=== PATIENT | male | born 1935 | race Caucasian/White ===

== ENCOUNTER → 2018-01-25 | Outpatient (CLI) | payer OTHER, BC ==
[~2018-01-25] VITALS: Ht 182.9 cm; Wt 126.6 kg
[~2018-01-25] MED LIST: ACETAMINOPHEN325 M1 PO; ALTACE2.5 MG PO; ALTACE5 M1 PO; ASPIRIN EC81 M1 PO; ASPIRIN325 PO; BETAPACE AF80 MG PO; BYSTOLIC 5 MG5 M1 PO; BYSTOLIC2.5 MG PO; COUMADIN 5 MG TA5 M1 PO; SIMCOR 500-401 EACH PO; SPIRONOLACTONE25 M1 PO; ZOCOR40 MG PO
--- NOTE | ~2018-01-25 | P ---
[facility] [place] [address] PROCEDURE REPORT Name: JOHANNY GO Room #: REG [facility]#: [id number] Admission: 01/25/18 Attend Phys: Hank Marie MD Discharge: Date of : 39 Report #: [id number] THIS REPORT FOR: //name// CC: Gary Marie PROCEDURE: ICD generator exchange. 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 POSTOPERATIVE DIAGNOSIS: Implantable converter-defibrillator at elective replacement interval. HISTORY OF PRESENT ILLNESS: The patient is an 82-year-old male status post ICD implantation, whose device is at the elective replacement interval and is here for generator exchange. ANESTHESIA: The patient underwent MAC anesthesia, with no anesthesia-related complications. DESCRIPTION OF PROCEDURE: The patient underwent informed consent. We discussed the details of the procedure including the risks, which include but not limited to bleeding, infection, vascular damage and need for possible lead revisions. He understood these risks and is willing to proceed. The patient was brought to the EP laboratory in a fasting and sedated state, prepped and draped in a sterile fashion and received IV antibiotics prior to initiation of the procedure. Next, I injected lidocaine at the prior incision site. Incision was made and the chronic pocket was entered. The device was disconnected from the leads. They were tested and found to be functioning normally and the new device was connected, placed in the pocket and the pocket was irrigated with vancomycin. The pocket was closed in 3 layers using 2-0 for the deep layer, 3-0 for the mid layer and 4-0 for the subcuticular layer and surgical glue was placed to the outer skin layer. The patient awoke neurologically and hemodynamically intact. No complications and no significant bleed. The explanted device was a Medtronic product #[id number], serial number [id number]. The newly implanted device was a Medtronic model #UYGY3P3, serial #[id number]. The atrial lead was a Medtronic model #4574, serial #[id number]. This was implanted in 2007. The RV lead was a Medtronic model #6947, serial #[id number], implanted in 2000. The device is programmed to the DDD 60-130 mode and the VT zones were set at the nominal settings. The atrial lead demonstrated a P-wave of 1.9 millivolts, pacing impedance of 475 ohms and a pacing threshold of 0.5 volts at 0.5 milliseconds. The RV lead showed normal R-wave pacing impedance of [facility] [address] [place] [address] PROCEDURE REPORT Name: JOHANNY GO Room #: REG [facility].#: [id number] Admission: 01/25/18 Attend Phys: Hank Marie MD Discharge: Date of : 39 Report #: [id number] 399 ohms and a pacing threshold of 0.5 volts at 0.5 milliseconds. CONCLUSIONS: 1. Successful ICD generator change. 2. Satisfactory atrial and ventricular pacing and sensing thresholds. By: 1621 0150 Hank Marie MD /nt
[2018-01-25 07:09] VITALS: BP 114/69
[2018-01-25 07:47] LABS: ABSOLUTE NEUTROPHILS 4.3 thou/uL (1.4-8.2); BASOPHILS 0.7 % (0.0-2.0); EOSINOPHILS 2.3 % (0.0-3.0); HEMATOCRIT 45.3 % (42.0-52.0); HEMOGLOBIN 15.2 gm/dL (14.0-18.0); LYMPHOCYTES 18.5 % (24.0-44.0); MCH 30.8 pg (26.0-34.0); MCHC 33.6 g/dL (28.0-37.0); MCV 91.5 fL (80.0-100.0); MONOCYTES 7.2 % (1.0-8.0); PLATELET COUNT 153 thou/uL (150-400); POLYS 71.3 % (36.0-66.0); RBC 4.95 mil/uL (4.50-6.00); RDW 14.1 % (10.5-14.5); WBC 6.1 thou/uL (4.0-11.0)
[2018-01-25 08:00] LABS: CALCIUM 9.3 mg/dL (8.5-10.1); CREATININE 1.1 mg/dL (0.7-1.3); POTASSIUM 4.3 mmol/L (3.5-5.1)
[2018-01-25 08:01] LABS: APTT 29.7 Seconds (24.5-32.8); INR 1.2; PROTIME 12.3 Seconds (9.3-11.4)
[2018-01-25 08:07] LABS: ALBUMIN 3.8 g/dL (3.4-5.0); TOTAL BILIRUBIN 0.7 mg/dL (<0.1-1.0)
== END | disposition home or self-care (01) ==
LOC: CATH 06:35
PROVIDERS: Internal Medicine Cardiovascular Disease
DX: Z45.02 Encounter for adjustment and management of automatic implantable cardiac defibrillator (principal); I10 Essential (primary) hypertension; E78.5 Hyperlipidemia, unspecified; I42.9 Cardiomyopathy, unspecified; I48.91 Unspecified atrial fibrillation; Z87.891 Personal history of nicotine dependence; Z95.5 Presence of coronary angioplasty implant and graft; Z98.890 Other specified postprocedural states; Z79.01 Long term (current) use of anticoagulants; Z79.899 Other long term (current) drug therapy; Z79.82 Long term (current) use of aspirin
CPT/HCPCS: 62110; 62900; 70005

== ENCOUNTER 2018-04-12 01:06 | Inpatient (IN) | payer OTHER, BC ==
[~2018-04-12] VITALS: Ht 182.9 cm; Wt 124.7 kg
[2018-04-12 03:40] VITALS: BP 119/62
--- NOTE | 2018-04-12 05:24 | NUR ---
ADMISSION NOTE: PT ARRIVED ON 3W @ APPROX 0345 04/12/18, PT ALERT AND ORIENTED X4, PT ARRIVED ON 2L , SATS IN THE HIGH 90'S. ASSESSMENTS COMPLETED PER CCTELE PROTOCOL. LAURIE ARRIVED TO SEE PATIENT, PLAN OF CARE, KEEP NPO- WILL CONTINUE TO MONITOR
[2018-04-12 06:15] LABS: CHOLESTEROL 64 mg/dL (<200); HDL CHOLESTEROL 22 mg/dL (>40); LDL CHOLESTEROL 30 mg/dL (<100); TC:HDL 2.9 Ratio (Not establshd); TRIGLYCERIDE 62 mg/dL (<150); TROPONIN-I <0.06 ng/mL (<0.06); VLDL 12 mg/dL (<40)
[2018-04-12 06:18] LABS: SERUM ASSESSMENT Clear
[2018-04-12 06:36] LABS: LIPASE 3803 U/L (73-393)
[2018-04-12 08:02] VITALS: BP 105/59
[2018-04-12 08:20] LABS: ABSOLUTE NEUTROPHILS 16.7 thou/uL (1.4-8.2); BASOPHILS 0.2 % (0.0-2.0); HEMATOCRIT 39.8 % (42.0-52.0); HEMOGLOBIN 12.9 gm/dL (14.0-18.0); LYMPHOCYTES 4.9 % (24.0-44.0); MCH 29.8 pg (26.0-34.0); MCHC 32.4 g/dL (28.0-37.0); MCV 92.1 fL (80.0-100.0); MONOCYTES 4.3 % (1.0-8.0); PLATELET COUNT 237 thou/uL (150-400); POLYS 90.6 % (36.0-66.0); RBC 4.32 mil/uL (4.50-6.00); RDW 14.2 % (10.5-14.5); WBC 18.4 thou/uL (4.0-11.0)
[2018-04-12 08:30] LABS: ALBUMIN 2.6 g/dL (3.4-5.0); CALCIUM 8.3 mg/dL (8.5-10.1); CREATININE 1.2 mg/dL (0.7-1.3); TOTAL BILIRUBIN 3.9 mg/dL (<0.1-1.0); TOTAL PROTEIN 5.5 g/dL (6.4-8.2)
--- NOTE | 2018-04-12 08:31 | EKG ---
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 : 1935 Requested By: Shawna Posadas Order Number: [id number] MD: Hank Marie Measurements Intervals [place] Rate: 60 P: [place]: 198 QRS: -39 QRSD: 101 T: 25 QT: 441 QTc: 441 Interpretive Statements Atrial-paced rhythm Left axis deviation Compared to ECG 05/09/2015 07:24:55 Sinus rhythm no longer present Poor R-wave progression no longer present Electronically Signed On 04-12-2018 8:31:31 CUSTOMER SUCCESS ADVOCATE by Hank Marie [email or web address] <ELECTRONICALLY SIGNED> By: Hank Marie MD 04/12/18 0831 0659 MD YULIANA Adhikari
[2018-04-12 08:41] LABS: APTT 43.6 Seconds (24.5-32.8); INR 2.5; PROTIME 26.2 Seconds (9.3-11.4)
[2018-04-12 08:44] LABS: POTASSIUM 3.9 mmol/L (3.5-5.1)
[2018-04-12 16:03] VITALS: BP 119/57
[2018-04-12 20:05] VITALS: BP 124/60
--- NOTE | 2018-04-13 04:27 | NUR ---
RESTING QUIETLY TONIGHT. DENIES PAIN. CONTINUES ON IV FLUIDS, AND IV ANTIBIOTICS. NO CONCERNS VOICED.
[2018-04-13 04:28] VITALS: BP 111/63
[2018-04-13 05:51] LABS: HEMATOCRIT 37.1 % (42.0-52.0); HEMOGLOBIN 12.1 gm/dL (14.0-18.0); MCH 29.5 pg (26.0-34.0); MCHC 32.7 g/dL (28.0-37.0); MCV 90.4 fL (80.0-100.0); RBC 4.1 mil/uL (4.50-6.00); RDW 14.1 % (10.5-14.5); WBC 9.5 thou/uL (4.0-11.0)
[2018-04-13 06:06] LABS: INR 1.3; PROTIME 13.5 Seconds (9.3-11.4)
[2018-04-13 06:21] LABS: ALBUMIN 2.5 g/dL (3.4-5.0); CALCIUM 8.4 mg/dL (8.5-10.1); CREATININE 0.9 mg/dL (0.7-1.3); POTASSIUM 3.8 mmol/L (3.5-5.1); TOTAL BILIRUBIN 1.5 mg/dL (<0.1-1.0); TOTAL PROTEIN 5.3 g/dL (6.4-8.2)
[2018-04-13 06:27] LABS: ALBUMIN 2.3 g/dL (3.4-5.0); TOTAL BILIRUBIN 1.4 mg/dL (<0.1-1.0); TOTAL PROTEIN 5.9 g/dL (6.4-8.2)
[2018-04-13 07:52] VITALS: BP 131/77
--- NOTE | 2018-04-13 09:15 | EKG ---
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 COFFEY : 1935 Requested By: Gary Mendez Order Number: [id number] MD: Hank Marie Measurements Intervals [place] Rate: 64 P: [place]: 163 QRS: -44 QRSD: 99 T: 26 QT: 420 QTc: 434 Interpretive Statements Atrial-paced complexes Left axis deviation Low voltage, precordial leads Anteroseptal infarct, age indeterminate Compared to ECG 04/12/2018 06:59:07 Low QRS voltage now present Myocardial infarct finding now present Ventricular-paced complex(es) or rhythm no longer present Electronically Signed On 04-13-2018 9:15:31 TECHNOLOGY TRAINER by Hank Marie [email or web address] <ELECTRONICALLY SIGNED> By: Hank Marie MD 04/13/18914 4 4 Hank Marie MD /EPI
[2018-04-13 11:42] VITALS: BP 118/67
--- NOTE | 2018-04-13 14:45 | 2DMMODE ---
[facility] [place] [address] 2 D/M-MODE ECHOCARDIOGRAM Name: JOHANNY GO Room #: 355-P ADM IN M.R.#: [id number] Admission: 04/12/18 Attend Phys: Jonah Song MD Discharge: Date of : 39 Date of Service: 04/13/18 1445 Report #: [id number] THIS REPORT FOR: //name// APPROVED REPORT Study performed: 04/13/2018 10:23:35 EXAM: Comprehensive 2D, Doppler, and color-flow Echocardiogram Patient Location: Echo lab Room #: [facility] Status: routine BSA: 2.44 HR: 72 bpm BP: 131/77 mmHg Rhythm: Atrial Fibrillation Other Information Study Quality: Fair Indications ICD: Atrial Fibrillation CAD Cardiomyopathy Hypertension/HDD Echo Enhancing Agent Indication: Endocardial border delineation Agent(s) / Amount(s) Used: Optison 3 cc 2D Dimensions IVSd: 10.01 (7-11mm) LVOT Diam: 23.35 (18-24mm) LVDd: 53.17 mm PWd: 10.10 (7-11mm) Ascending Ao: 38.99 (22-36mm) LVDs: 39.65 (25-40mm) Aortic Root: 36.57 mm IVC: 22.00 mm Aortic Valve AoV Peak [place].: 1.43 m/s AO Peak Gr.: 8.22 mmHg LVOT Max P.20 mmHg LVOT Max V: 0.89 m/s MICHAEL Vmax: 2.67 cm2 Pulmonary Valve PV Peak [place].: 1.07 m/s PV Peak Gr.: 4.[address] [facility] [address] [place] [address] 2 D/M-MODE ECHOCARDIOGRAM Name: JOHANNY GO Room #: 355-P ADM IN .R.#: [id number] Admission: 04/12/18 Attend Phys: Jonah Song MD Discharge: Date of : 39 Date of Service: 04/13/18 1445 Report #: [id number] Tricuspid Valve TR Peak [place].: 2.92 m/s TR Peak Gr.: 34.19 mmHg PA Pressure: 44.00 mmHg Left Ventricle The left ventricle is normal size. There is normal left ventricular wall thickness. The left ventricular systolic function is normal. The left ventricular ejection fraction is within the normal range. LVEF is 55-60%. This study is not technically sufficient to allow evaluation of the LV diastolic function. Right Ventricle The right ventricle is normal size. The right ventricular systolic function is normal. Device lead is present in the right ventricle. Atria Left atrium is dilated. Right atrium is dilated. Device lead is present in the right atrium. Aortic Valve The aortic valve is normal in structure. No aortic regurgitation is present. There is no aortic valvular stenosis. Mitral Valve The mitral valve is normal in structure. Mild mitral regurgitation. No evidence of mitral valve stenosis. Tricuspid Valve The tricuspid valve is normal in structure. There is mild tricuspid regurgitation. Estimated PAP 44 mmHg. There is moderate pulmonary hypertension. Pulmonic Valve The pulmonary valve is normal in structure. Trace pulmonic regurgitation. Great Vessels The aortic root is normal in size. IVC is dilated and collapses >50% with inspiration. Pericardium No pericardial effusion. <Conclusion> [facility] [address] [place] [address] 2 D/M-MODE ECHOCARDIOGRAM Name: JOHANNY GO Room #: 355- ADM IN M.R.#: [id number] Admission: 04/12/18 Attend Phys: Jonah Song MD Discharge: Date of : 39 Date of Service: 04/13/18 1445 Report #: [id number] Limited study The left ventricular systolic function is normal. LVEF is 55-60%. Both atria are mildly dilated. The aortic valve is normal in structure. No aortic regurgitation or stenosis. The mitral valve is normal in structure. Mild mitral regurgitation. There is mild tricuspid regurgitation. Estimated pulmonary artery pressure of 44 mmHg. No pericardial effusion. <ELECTRONICALLY SIGNED> By: Chalo Hughes MD, [facility] 04/13/18 1445 1445 1445 Chalo Hughes MD, FACC /INF
[2018-04-13 15:33] VITALS: BP 112/55
--- NOTE | 2018-04-13 15:36 | NUR ---
ASSESSMENT: CM REVIEWED CHART AND MET WITH PATIENT AT THE BEDSIDE. PT IS ALERT AND ORIENTED X4. PT REPORTS HE LIVES AT HOME WITH HIS IN A HOUSE. PT REPORTS 2 STEPS TO ENTER WITH HANDRAILS AND NO STEPS HER HAS TO USE ONCE INSIDE. PT REPORTS HE DOES NOT GO IN THE BASEMENT. PT REPORTS AMBULATING WITH A CANE AND HAS A WALKER AT HOME IF NEEDED. PT REPORTS HAVING GRAB BARS IN THE SHOWER. PT REPORTS HE HAS NOT HAD HH IN THE PAST NOR BEEN TO A SNF. PT STATES HE HAS BEEN PRETTY INDEPENDENT. PT REPORTS HE DOES HAVE A CPAP HE WEARS AT HOME BUT DID NOT BRING IT TO THE HOSPITAL. CM NOTIFIED BEDSIDE RN. PT HAD ECHO TODAY. PATIENT MAY NEED POSSIBLE CHOLECYSTOSTOMY TUBE VS LAP KACEY. CM WILL CONTINUE TO FOLLOW TO ASSIST NEEDED.
--- NOTE | 2018-04-13 18:42 | NUR ---
PATIENT HAD ECHO DONE THIS AM AND EKG.HE CONT ON CLEAR LIQUID DIET AT THIS TIME. STATES HE DOES NOT HAVE APPETITE TO EAT. CONT ON IV FLUIDS. WAS HERE TODAY. WILL CONT WITH PLAN OF CARE.
[2018-04-13 19:55] VITALS: BP 117/61
[2018-04-14 04:25] VITALS: BP 118/64
[2018-04-14 06:20] LABS: ALBUMIN 2.5 g/dL (3.4-5.0); DIRECT BILIRUBIN 0.7 mg/dL (<0.1-0.3); TOTAL BILIRUBIN 1.2 mg/dL (<0.1-1.0); TOTAL PROTEIN 6.5 g/dL (6.4-8.2)
--- NOTE | 2018-04-14 06:36 | NUR ---
SLEPT MOST OF SHIFT. UP TO BATHROOM WITH STANDBY ASSIST. WORKING ON GOALS AND PLAN OF CARE FOR NOC AND POSSIBLE SURGERY. PROGRESSING TOWARDS SURGERY SOON. MAINTAIN SAFE ENVIRONMENT. CONTINUE TO ASSES. DENIES COMPLAINTS OF PAIN THIS SHIFT. TOLERATING LIQUIDS.
[2018-04-14 09:01] VITALS: BP 9121/60
--- NOTE | 2018-04-14 11:52 | NUR ---
Assumed care of patient at 0700. Vitals have been stable. Alert and oriented x4, denies pain and nausea. States had some loose stool this morning. Requesting to shower. [place] to be off monitor for shower - Dr. Jason valles with discontinuing telemetry all together and patient can be Med-Surg status. Shower this morning. IVF infusing per orders, along with scheduled Zosyn. Up with SBA, steady gait. Calls appropriately. On clear liquid diet and tolerating well. Surgery rounded this morning and appears they are monitoring patient on a day-to-day basis for surgery vs. non-surgery candidate. at bedside Continue to monitor.
--- NOTE | 2018-04-14 12:04 | NUR ---
ON-GOING ASSESSMENT: CM REVIEWED CHART. PATIENT IS STILL ON CLD AND WILL RESUME THAT AND ANBX TO SEE IF PANCREATITIS RESOLVES ON ITS OWN OR IF PATIENT WILL REQUIRE SURGERY. CM SPOKE WITH ATTENDING WHO STATES PATIENT WILL LIKELY BE HERE THROUGH THE WEEKEND. PT/OT ORDERED FOR PATIENT AND PENDING. CM WILL COTNINUE TO FOLLOW TO ASSIST NEEDED.
[2018-04-14 16:02] VITALS: BP 132/63
[2018-04-14 20:28] VITALS: BP 151/75
[2018-04-15 04:48] VITALS: BP 148/84
--- NOTE | 2018-04-15 06:20 | NUR ---
ASSUMED CARE OF PT AT 1900. A&Ox4, COOPERATIVE. DENIED PAIN AND TROUBLE BREATHING. TOLERATING FLUIDS AND IV ANTIBIOTICS. ABLE TO SLEEP MOST OF THE NIGHT. RESPONDED QUICKLY WHEN AROUNSED FROM SLEEP. NO ACUTE DISTRESS. PROGRESSING TOWARDS POC GOALS
[2018-04-15 07:58] VITALS: BP 139/75
[2018-04-15 16:54] VITALS: BP 139/79
--- NOTE | 2018-04-15 18:40 | NUR ---
PT IS PROGRESSING TOWARD POC GOALS. PT HAS NO C/O OF PAIN, N/V THIS SHIFT. IVF INFUSING. PT UP UP MC TO VOID VIA URINAL THIS SHIFT, STEADY ON FEET. PT IS RESTING COMFORTABLY AT THIS TIME, CALL LIGHT WITHIN REACH.
[2018-04-15 19:06] VITALS: BP 164/80
--- NOTE | 2018-04-16 02:41 | NUR ---
PATIENT IS ALERT AND ORIENTED. PATIENT IS UP AD MC. PATIENT IS ON ROOM AIR. PATIENT DENIES PAIN OR NAUSEA. PATIENT MS NOT ON TELE. PATIENT HAS A PACEMAKER. PATIENT USES URINAL. PATIENTS LBM WAS THE . PATIENT IS FROM [place]. PATIENT IS RESTING COMFORTABLEY IN BED. WCM. PATIENT PROGRESSING TO GOALS. PATIENT IS PENDING SURGERY WHEN THE LIVER ENZYMES DECREASE.
[2018-04-16 04:09] VITALS: BP 153/87
[2018-04-16 05:40] LABS: HEMATOCRIT 36.9 % (42.0-52.0); HEMOGLOBIN 12.1 gm/dL (14.0-18.0); MCH 29.8 pg (26.0-34.0); MCHC 32.9 g/dL (28.0-37.0); MCV 90.5 fL (80.0-100.0); RBC 4.07 mil/uL (4.50-6.00); RDW 13.7 % (10.5-14.5); WBC 6.1 thou/uL (4.0-11.0)
[2018-04-16 05:53] LABS: ALBUMIN 2.5 g/dL (3.4-5.0); CALCIUM 8.4 mg/dL (8.5-10.1); CREATININE 0.9 mg/dL (0.7-1.3); POTASSIUM 3.6 mmol/L (3.5-5.1); TOTAL PROTEIN 6.1 g/dL (6.4-8.2)
[2018-04-16 07:39] VITALS: BP 135/74
--- NOTE | 2018-04-16 14:54 | NUR ---
PT ALERT AND ORIENTED TIMES FOR. VSS, 98%RA. IVF INFUSING PER ORDER. PT DENIES PAIN/N/V/D TODAY. PT TOLERATES MEDS AND CLEAR LIQUID DIET. PT UP AB MC WITH STEADY GAIT. PLANS FOR LAP KACEY FOR TUESDAY OR TUESDAY. WILL CONTINUE TO MONITOR.
--- NOTE | 2018-04-16 16:13 | NUR ---
PATIENT TRANSFERRED TO UNIT AT 1612. REPORT GIVEN BY NURSE LEFTY. PATIENT SETTLED IN ROOM AND ORIENTED TO UNIT.
[2018-04-16 16:35] VITALS: BP 135/76
--- NOTE | 2018-04-17 04:22 | NUR ---
ASSUMED CARE OF PATIENT AT 1900. VSS. ASSESSMENT COMPLETED AT 1947 AND IS DOCUMENTED. PT A&O X4 AND ABLE TO CALL OUT APPROPRIATELY. DENIES N/V. TRACE EDEMA NOTED TO BLE. CONTINUES ON CLEAR LIQUID DIET, TOLERATING WELL. RIGHT AC PIV PATENT WITH CONTINUOUS IVF AND ZOSYN INFUSING PER DR ORDER. PT SLEEPING SOUNDLY IN BED IN NO ACUTE DISTRESS. CALL LIGHT WITHIN REACH. BED LOCKED AND IN LOWEST POSITION. WCTM.
--- NOTE | 2018-04-17 05:26 | NUR ---
THIS NURSE AGREES WITH ASSESSMENT AND NOTES OF OPERATIONS OFFICER AFLOAT ON THIS PATIENT.
--- NOTE | 2018-04-17 09:35 | NUR ---
PT IS A&0X4, ONLY SLIGHTLY SALAMATOF, CLEAR LIQUID DIET, APPEARED EXCITED W/THE JELLO, BROTH, JUICE, AND SPRITE GIVEN TO HIM THIS A.M. IV PUMP BEEPING FREQ D/T PLACEMENT IN R AC, WRAPPED W/KERLIX TO PREVENT OCCLUSION. ENCOURAGED HIM TO USE CALL LIGHT FOR ANY NEEDS
--- NOTE | 2018-04-17 12:49 | NUR ---
SW reviewed chart and spoke with nursing and attending physician. Pt was [facility] to [facility] from . Pt is scheduled to have lap juan tomorrow per surgery. Plan is for pt to return home with his when medically stable. OSMAR is following to assist as needed with discharge planning.
[2018-04-17 13:43] LABS: ALBUMIN 2.8 g/dL (3.4-5.0); DIRECT BILIRUBIN 0.5 mg/dL (<0.1-0.3); TOTAL BILIRUBIN 0.9 mg/dL (<0.1-1.0); TOTAL PROTEIN 6.3 g/dL (6.4-8.2)
[2018-04-17 21:11] VITALS: BP 137/78
--- NOTE | 2018-04-18 04:17 | NUR ---
PATIENT ALERT AND ORIENTED X4. IV IN RAC WITH NS AT 75ML/HR. UP IN ROOM BY SELF. NPO SINCE NM FOR POSSIBLE LAP KACEY. DENIES PAIN. SLEPT MOST OF NIGHT.
[2018-04-18 06:13] LABS: HEMATOCRIT 38.5 % (42.0-52.0); MCH 30.4 pg (26.0-34.0); MCHC 33.8 g/dL (28.0-37.0); MCV 89.8 fL (80.0-100.0); RBC 4.28 mil/uL (4.50-6.00); WBC 7.1 thou/uL (4.0-11.0)
[2018-04-18 06:28] LABS: ALBUMIN 2.7 g/dL (3.4-5.0); CREATININE 1.1 mg/dL (0.7-1.3); MAGNESIUM 1.7 mg/dL (1.8-2.4); POTASSIUM 3.3 mmol/L (3.5-5.1); TOTAL BILIRUBIN 0.8 mg/dL (<0.1-1.0)
[2018-04-18 07:15] VITALS: BP 135/72
--- NOTE | 2018-04-18 07:15 | NUR ---
ASSUMED PT CARE AT 0700. ASSESSMENT IS CHARTED AND IS NEGATIVE OTHER THAN 1+ EDEMA TO LEFT LOWER LEG. PT DENIES PAIN OR NAUSEA AT THIS TIME. VITAL SIGNS STABLE. PRE-OP CHECKLIST BEGAN. PT HAS BEEN NPO SINCE HI AND CONSENT SIGNED FOR SURGERY TODAY.
--- NOTE | 2018-04-18 09:55 | NUR ---
SW reviewed chart and spoke with nursing. Pt is currently off the unit having surgery. Plan is for pt to discharge back home when medically stable. OSMAR is following to assist as needed with discharge planning.
--- NOTE | 2018-04-18 11:19 | NUR ---
PT OR AT 0750.
[2018-04-18 14:00] VITALS: BP 151/82
[2018-04-18 15:00] VITALS: BP 162/83
--- NOTE | 2018-04-18 16:09 | NUR ---
RECEIVED PT FROM OR AT 1400. PT DROWSY, BUT AROUSABLE TO NAME. ALERT/ORIENTED TO PERSON AND PLACE. DRESSING TO RIGHT UPPER QUADRANT ADRIEL EXIT SITE IS CLEAN,DRY,INTACT. SEROSANQUINEOUS DRAINAGE IN ADRIEL. 4 SCOPE SITES OPEN TO AIR SEALED WITH DERMABOND APPEAR ASYMPTOMATIC. VITAL SIGNS STABLE. O2 TO 2L NC. NG TO RIGHT NARE TO LOW INTERMITTENT SUCTION. PT REPORTS PAIN 7/10. PAIN MEDICATION NOT DUE AT THIS TIME. WILL CONTINUE WITH CURRENT CARE.
[2018-04-18 16:17] VITALS: BP 153/76
--- NOTE | 2018-04-18 16:47 | NUR ---
PT MORE AWAKE AT THIS TIME. TEACHING DONE ON INCENTIVE SPIROMETRY. PT TOOK 10 BREATHS TO 1000ML. PT HAVING DIFFICULTY URINATING AT THIS TIME. WILL BLADDER SCAN IF UNABLE TO VOID BY 1800. OTHERWISE PT PROGRESSING WELL. WILL CONTINUE CURRENT CARE.
[2018-04-18 17:31] VITALS: BP 136/70
--- NOTE | 2018-04-18 18:11 | NUR ---
PT HAVING DIFFICULTY EMPTYING BLADDER. URINATING ABOUT 25ML EVERY HOUR. BLADDER SCAN SHOWS 211 ML IN BLADDER. PT REPORTS HE FEELS UNCOMFORTABLE AND LIKE HIS BLADDER IS FULL. WILL NOTIFY PHYSICIAN.
[2018-04-19 07:00] LABS: HEMATOCRIT 38.7 % (42.0-52.0); HEMOGLOBIN 13.1 gm/dL (14.0-18.0); MCH 30.5 pg (26.0-34.0); MCHC 33.8 g/dL (28.0-37.0); MCV 90.3 fL (80.0-100.0); RBC 4.29 mil/uL (4.50-6.00); WBC 10.7 thou/uL (4.0-11.0)
[2018-04-19 07:22] LABS: ALBUMIN 2.8 g/dL (3.4-5.0); CALCIUM 9.1 mg/dL (8.5-10.1); CREATININE 1.1 mg/dL (0.7-1.3); POTASSIUM 3.4 mmol/L (3.5-5.1); TOTAL BILIRUBIN 0.8 mg/dL (<0.1-1.0); TOTAL PROTEIN 6.3 g/dL (6.4-8.2)
[2018-04-19 07:26] VITALS: BP 155/75
--- NOTE | 2018-04-19 07:26 | NUR ---
patients cares were assumed at shift change. patient was assessed and meds were passed. patient flomax was started. patient has a NG tto low intermittent suction. was told on report to bladder scan at 0600. this was done and scaner revealed 743cc of urine that the patient can not pass, attempted to stright cath this man and was not successful. used the merino and got a large blood clot and 700 cc of urine out. called to get and order to keep the merino due to retention and blood clots. this was approved by . hourly rounding was done and this patients bed is in a low and locked position.
--- NOTE | 2018-04-19 08:35 | NUR ---
ASSUMED CARE OF PATIENT THIS MORNING. PATIENT IS ALERT AND ORIENTED X 4. HE IS UP WITH STANBY ASSISTANCE DUE TO HAVING AN NG TUBE, IV FLUIDS INFUSING, R. ADRIEL DRAIN NOW A MCGHEE CATHETER IN PLACE. HIS NG TUBE IS ON LOW INTERMITTENT SUCTION AND LOCATED IN HIS RIGHT NARE. PHYSICIAN WILL POSSIBLY WANT NG TUBE REMOVED AFTER GI PROCEDURE TODAY WILL FOLLOW UP AFTER PROCEDURE. PATIENT HAS A PACEMAKER WITH DEFIBRILLATOR. HE HAS BILATERAL LOWER EXTREMITY EDEMA. HE CURRENTLY DOES NOT COMPLAIN OF ANY PAIN. HE HAS FOUR LAP SITES W/DERMABOND. PATIENT CALLS OUT APPROPRIATELY FOR ASSISTANCE.
--- NOTE | 2018-04-19 11:47 | NUR ---
PATIENT LEFT THE UNIT AT 0800 THIS MORNING WITH TRANSPORTER AND TICKET TO RIDE SIGNED FOR A CHOLANIOGRAM.
--- NOTE | 2018-04-19 11:51 | NUR ---
SW reviewed chart and spoke with nursing and attending physician. Pt to have upper GI and small bowel follow through today. Plan is for pt to d/c home when medically stable. SW is following to assist as needed with discharge planning.
--- NOTE | 2018-04-19 12:21 | NUR ---
PT LEFT UNIT AT APPROXIMATELY 0815 FOR UPPER GI PROCEDURE. ONCE RESULTS WERE READ PT WAS CLEARED TO NO LONGER BE NPO. CALLED DR. AVILA AND HE SAID TO START PT ON CLEAR LIQUID DIET AND IF TOLERATED WELL THEN ADVANCE. NG TUBE WILL ALSO BE REMOVED.
[2018-04-19 19:06] VITALS: BP 119/56
--- NOTE | 2018-04-20 03:23 | NUR ---
PATIENT ALERT AND ORIENTED X4. DENIES PAIN. ABD HAS 4 SMALL INCISIONS WITH DERMABOND. THE ONE UPPER MID ABD IS RED UNDER IT. IT IS NOT WARM TO TOUCH, BUT IT IS TENDER ALL OF THE INCISIONS. PATIENT DENIES PASSING GAS OF YET. SLEPT MOST OF NIGHT.
[2018-04-20 06:28] LABS: ALBUMIN 2.3 g/dL (3.4-5.0); DIRECT BILIRUBIN 0.5 mg/dL (<0.1-0.3); TOTAL PROTEIN 5.7 g/dL (6.4-8.2)
[2018-04-20 07:16] VITALS: BP 157/67
--- NOTE | 2018-04-20 10:59 | NUR ---
ASSUMED CARE OF PATIENT THIS MORNING HE IS A&OX4. HE IS A R. ADRIEL DRAIN, STILL DRAINING SEROSANGUINOUS COLORED FLUID MODERATE AMOUNT. PATIENTS MCGHEE WAS REMOVED THIS MORNING AT 0800 AND PATIENT HAS ONLY VOIDED A SCANT AMOUNT OF URINE. HE WAS BLADDER SCANNED AND 410ml SHOWED THE RETAINED AMOUNT. PATIENT RECEIVED IV PUSH LASIX AND FLOMAX THIS MORNING. WILL CONTINUE TO MONITOR PATIENTS OUTPUT AND UPDATE THE PHYSICIAN. PATIENT IS UP AD MC. HE JUST HAD A BOWEL MOVEMENT TODAY FOR THE FIRST TIME SINCE HIS PROCEDURE. PATIENT IS CURRENTLY SITTING IN CHAIR WITH THE CALL LIGHT WITHIN REACH. IV ZOSYN INFUSING AT 25ML/HR.
--- NOTE | 2018-04-20 14:34 | NUR ---
SW reviewed chart and spoke with nursing and attending physician. Pt is POD #2 lap juan. Pt is progressing towards goals for discharge. Plan for pt to d/c home is anticipated for tomorrow. Pt will d/c home with ADRIEL drain in place and will follow up with surgery as an outpatient. SW is following to assist as needed with discharge planning.
--- NOTE | 2018-04-20 14:35 | NUR ---
PATIENT JUST BLADDER SCANNED AND 393ML WAS RETAINED. HE DID NOT WANT TO BE STRAIGHT CATH'D JUST YET. WANTS TO TRY AND VOID ON HIS OWN. WILL CONTINUE TO MONITOR AND WILL STRAIGHT CATH IF >450ML.
--- NOTE | 2018-04-20 17:40 | NUR ---
BLADDER SCANNED PT 432ML RETAINED. ATTEMPTED A STRAIGHT CATHETERIZION UNABLE TO GET ANY OUTPUT. CONTACTED PHYSICIAN () WANTS PT BLADDER SCANNED AGAIN AT 1999. IF >450ML ATTEMPT ANOTHER STRAIGHT CATHERIZATION AND IF NO OUTPUT OBTAINED THEN RE-INSERT A MCGHEE CATHETER.
[2018-04-20 19:48] VITALS: BP 107/71
--- NOTE | 2018-04-21 03:17 | NUR ---
PATIENT ALERT AND ORIENTED X4. UP TO BATHROOM BY SELF. DID A BLADDER SCAN ON PT X4. FIRST TIME GOT 291, THE OTHER THREE TIMES GOT 296. TRIED IN ALL 4 DIRECTINS. PATIENT STATED HE FELT BETTER AND DID NOT FEEL HE HAD TO URINATE MUCH. PATIENT VOIDS SMALL AMONTS AT A TIME. URINE IS NOT DARK IT WAS. IV BEGAN TO LEAK. PULLED IT AND TRIED TO START ANOTHER ONE. TRIED X2 WITH NO RESULTS. ANOTHER NURSE LOOKED AND FOUND NOTHING. THE BUSINESS SUPPORT MANAGER CAME DOWN TO START. SHE PUT IT IN HIS R WRIST. PATIENT TOLERATED WELL. PATIENT DENIES PAIN. SLEPT MOST OF NIGHT.
[2018-04-21 07:02] LABS: CALCIUM 8.9 mg/dL (8.5-10.1); CREATININE 1.2 mg/dL (0.7-1.3)
[2018-04-21 07:05] LABS: POTASSIUM 2.7 mmol/L (3.5-5.1)
--- NOTE | 2018-04-21 07:36 | NUR ---
PHYSICIAN CALL RE: CRITICAL LABS AND IV FLUIDS STILL RUNNING. HE SAID TO KEEP MCGHEE IN, YET REPORT IS IT WAS REMOVED PRIOR TO MY SHIFT. ORDER TO STOP IVF, ALREADY DONE AT FIRST GLANCE DURING REPORT AND WAS GOING TO REPORT BACK TO A&0X4, ENCOURAGED HIM TO USE CALL LIGHT FOR ANY NEEDS
--- NOTE | 2018-04-21 08:37 | NUR ---
pt mentions taking flomax at home, yet said it wasn't started here with his admission, ambulating freely steadily in room, ingesting liquids w/breakfast, denies pain, in good spirits
[2018-04-21 08:45] VITALS: BP 122/69
[2018-04-21 09:25] LABS: INR 1.1; PROTIME 11.6 Seconds (9.3-11.4)
--- NOTE | 2018-04-21 12:07 | PATH ---
[facility] [place] [address] [place] [address] PATHOLOGY RPT PROCEDURE Name: ABBIJOHANNY MANNING Room #: 221-P [facility] IN M.R.#: [id number] Admission: 04/12/18 Date of : 39 Discharge: Report #: [id number] Path Case #: [id number] [facility] Accession Number: [id number] . 01 Material submitted: . GALLBLADDER . 01 Clinical history: . Cholelithiasis with acute cholecystitis. . 02 Diagnosis: Gallbladder, cholecystectomy: - Moderate acute cholecystitis associated with extensive hemorrhage and fibrinoid degeneration. ([facility]; 04/19/2018) QMS/04/19/2018 . 02 Electronically signed: . Courtney Powell MD, Pathologist NPI- [id number] . 01 Gross description: . Received in formalin labeled "Johanny Go gallbladder" is a fragmented cholecystectomy specimen measuring 6.8 x 4.5 x 1.7 cm in aggregate. The serosa is red-brown and diffusely hemorrhagic. The mucosa is pink-red and hemorrhagic, without polyps or masses identified. The average wall thickness is 0.4 cm. No calculi are present within the specimen or within the container. Spiral Machine Operator sections of the fundus and body and the cystic duct margin are submitted in cassette A1. ([facility]; 04/18/2018) SYC/SYC . 02 Pathologist provided ICD-10: K81.0 . 02 CPT . 313111 Specimen Comment: A courtesy copy of this report has been sent to Specimen Comment: [phone], , . Specimen Comment: Report sent to ,DR SINGLETON / DR PURI Specimen Comment: A duplicate report has been generated due to demographic updates. Performed at: [address], [place] [id number] MD Cam Roberson MD Phone: [phone] Performed at: 02 [place] [address] PATHOLOGY RPT PROCEDURE Name: JOHANNY GO Room #: 221-P ADM IN M.R.#: [id number] Admission: 04/12/18 Date of : 39 Discharge: Report #: [id number] Path Case #: [id number] [address] [place], [place] [id number] MD Courtney Powell MD Phone: [phone]
[2018-04-21] MEDS ORDERED: AUGMENTIN 875-1 EACH PO (12:19)
[2018-04-21] MEDS ORDERED: HYDROCODON-ACE1 EAC7 PO (12:19)
[2018-04-21] MEDS ORDERED: FLOMAX0.4 MG PO (12:19)
[2018-04-21 13:14] VITALS: BP 122/69
--- NOTE | 2018-04-21 13:44 | NUR ---
DISCHARGE NOTE: SW reviewed chart and spoke with nursing and attending physician. Pt is medically stable for discharge home today. SW met with pt at bedside to discuss discharge plan. Pt will d/c home with ADRIEL drain. SW offered to arrange HH services. Pt declines HH. Pt's will provide transportation home. No additional SW needs identified at this time, but is available to assist should needs arise.
== END 2018-04-21 13:42 | disposition home or self-care (01) | DRG 853 ==
LOC: 3W 01:06 → SICU 03:41 → 3W 03:41 → SICU 04-16 16:13 → ENTRNSPT 04-21 13:32 → EDTRNSPTSTS 04-21 13:40 → SICU 04-21 13:42
PROVIDERS: Internal Medicine Cardiovascular Disease; Internal Medicine Gastroenterology; Nurse Practitioner; Nurse Practitioner Family; Registered Nurse; Specialist; Surgery; ADMIT Internal Medicine
PROC: 0D9670Z Drainage of Stomach with Drainage Device, Via Natural or Artificial Opening (ICD-10-PCS; principal; 2018-04-18)
PROC: 0DJ08ZZ Inspection of Upper Intestinal Tract, Via Natural or Artificial Opening Endoscopic (ICD-10-PCS; principal; 2018-04-18)
PROC: BF141ZZ Fluoroscopy of Gallbladder, Bile Ducts and Pancreatic Ducts using Low Osmolar Contrast (ICD-10-PCS; principal; 2018-04-18)
PROC: 0FT44ZZ Resection of Gallbladder, Percutaneous Endoscopic Approach (ICD-10-PCS; principal; 2018-04-18)
DX: A41.9 Sepsis, unspecified organism (principal); K85.10 Biliary acute pancreatitis without necrosis or infection; K80.12 Calculus of gallbladder with acute and chronic cholecystitis without obstruction; K82.A2 Perforation of gallbladder in cholecystitis; K56.7 Ileus, unspecified; R33.9 Retention of urine, unspecified; I25.10 Atherosclerotic heart disease of native coronary artery without angina pectoris; I49.5 Sick sinus syndrome; I10 Essential (primary) hypertension; E78.5 Hyperlipidemia, unspecified; N40.0 Benign prostatic hyperplasia without lower urinary tract symptoms; I48.0 Paroxysmal atrial fibrillation; I25.5 Ischemic cardiomyopathy; E78.00 Pure hypercholesterolemia, unspecified; D18.09 Hemangioma of other sites; I48.2 Chronic atrial fibrillation; E87.6 Hypokalemia; K57.90 Diverticulosis of intestine, part unspecified, without perforation or abscess without bleeding; K29.80 Duodenitis without bleeding; E66.9 Obesity, unspecified; Z68.37 Body mass index [BMI] 37.0-37.9, adult; Z89.022 Acquired absence of left finger(s); Z87.828 Personal history of other (healed) physical injury and trauma; I25.2 Old myocardial infarction; Z87.891 Personal history of nicotine dependence; Z95.5 Presence of coronary angioplasty implant and graft; Z95.810 Presence of automatic (implantable) cardiac defibrillator; Z79.01 Long term (current) use of anticoagulants; Z79.82 Long term (current) use of aspirin; Z79.899 Other long term (current) drug therapy; Z82.49 Family history of ischemic heart disease and other diseases of the circulatory system
CPT/HCPCS: 10879; 15002; 50010; 50101; 50249; 50331; 50411; 50555; 50558; 50900; 50962; 51489; 51975; 52265; 52266; 52287; 53307; 53310; 54022; 54118; 55245; 55317; 56462; 56525; 56526; 56639; 62110; 62900; 70005

== ENCOUNTER → 2019-04-18 | Outpatient (CLI) | payer OTHER, BC ==
[~2019-04-18] MED LIST changes: +AUGMENTIN 875-1 EACH PO; +FLOMAX0.4 MG PO; +HYDROCODON-ACE1 EAC7 PO
== END ==
LOC: SJCVC 13:16
DX: I21.29 ST elevation (STEMI) myocardial infarction involving other sites (principal); R94.31 Abnormal electrocardiogram [ECG] [EKG]; I25.10 Atherosclerotic heart disease of native coronary artery without angina pectoris; E78.00 Pure hypercholesterolemia, unspecified; I48.0 Paroxysmal atrial fibrillation; I10 Essential (primary) hypertension; D68.59 Other primary thrombophilia; I73.9 Peripheral vascular disease, unspecified; Z79.82 Long term (current) use of aspirin; Z79.899 Other long term (current) drug therapy; Z95.810 Presence of automatic (implantable) cardiac defibrillator

== ENCOUNTER → 2019-10-23 | Outpatient (CLI) | payer OTHER, BC | LOC: SJCVCIMAG 08:39 | PROVIDERS: ATTEND Internal Medicine Cardiovascular Disease | DX: Z45.02 Encounter for adjustment and management of automatic implantable cardiac defibrillator (principal); I25.10 Atherosclerotic heart disease of native coronary artery without angina pectoris; E78.00 Pure hypercholesterolemia, unspecified; I48.0 Paroxysmal atrial fibrillation; I10 Essential (primary) hypertension; I49.5 Sick sinus syndrome; I25.5 Ischemic cardiomyopathy; I49.3 Ventricular premature depolarization; Z95.810 Presence of automatic (implantable) cardiac defibrillator; Z79.01 Long term (current) use of anticoagulants; Z79.899 Other long term (current) drug therapy; Z87.891 Personal history of nicotine dependence ==

== ENCOUNTER 2019-12-28 01:03 | Inpatient (IN) | payer OTHER, BC ==
[~2019-12-28] VITALS: Ht 182.9 cm; Wt 120.2 kg
[2019-12-28] VITALS (16 sets, daily range): BP systolic 105–155; BP diastolic 60–90
--- NOTE | ~2019-12-28 | EMS ---
[address] [address] EMS Patient Care Report Name: JOHANNY GO Room #: 213-P ADM IN M.R.#: [id number] Admission: 12/28/19 Attend Phys: Jimmy Stearns MD Discharge: Date of : 39 Report #: [id number] THIS REPORT FOR: //name// Report Transmitted: 12/28/2019 06:48 EMS Care Summary [facility] - Ambulance Incident [id number] @ 12/27/2019 23:18 Incident Location [address] [place] [address] Patient JOHANNY GO Male, 84 Years 1935 Patient Address [address] [place] [address] Patient History Pacemaker/AICD,Cardiac Condition - Other, Patient Allergies No known allergies, Patient Medications Spironolactone, Tamsulosin, Ramipril, Aspirin, Bystolic, Simvastatin, Warfarin, Chief Complaint DEFIBRILATOR WENT OFF Disposition Transported No Lights/[place] Reason Heart Problems/AICD Transported To [facility] Narrative SUBJECTIVE- PATIENT STATES HE WAS SLEEPING WHEN HE WAS SUDDENLY AWAKENED BY HIS DEFIBRILATOR GOING OFF. HE STATES IN A MATTER OF 20 MINUTES HIS DEFIBRILATOR WENT OFF 4 TIMES. PATIENT STATES HE NEVER HAD ANY CHEST PAIN OR SOB. [address] [address] EMS Patient Care Report Name: JOHANNY GO Room #: 213-P ADM IN [facility]#: [id number] Admission: 12/28/19 Attend Phys: Jimmy Stearns MD Discharge: Date of : 39 Report #: [id number] OBJECTIVE- FOUND PATIENT SITTING IN A RECLINER IN HIS LIVINGROOM. PATIENT'S IS ON SCENE WITH HIM ALONG WITH [facility] THAT IS ASSESSING THE PATIENT. PATIENT IS ALERT AND IN NO DISTRESS. ASSESS- PATIENT IS ALERT AND ORIENTED, SKIN WARM AND DRY, COLOR NORMAL, CAP REFILL LESS THAN TWO. NO CHEST PAIN, NO SOB, NO ABDOMINAL PAIN, LUNGS ARE CLEAR AND PUPILS ARE NORMAL. PLAN- MADE PATIENT CONTACT AND RECEIVED REPORT AND VITALS FROM [facility]. ON SCENE WE DID VITALS, O2 SAT, EKG(PACED/SR), 12 LE[address] WAS NEGATIVE FOR [address] ELEVATION. PATIENT AND HIS WANT PATIENT TO GO TO [facility]. PATIENT WAS ABLE TO WALK TO THE STRETCHER WHERE HE WAS SECURED WITH ALL STRAPS. IN UNIT STARTED A 22G IV LOCK IN THE LEFT WRIST, BLOOD SUGAR WAS 143. DURING TRANSPORT PATIENT RESTED WITH NO COMPLAINTS. UPON ARRIVAL AT [facility] PATIENT WAS STABLE WITH NO CHANGES IN CONDITION. GAVE REPORT TO RN AND TURNED PATIENT OVER. Initial Vitals @PTAP: 63,R: 18,BP: 186/100,GCS: 15,SpO2: 92,Revised Trauma: 12, @23:30P: 66,R: 18,BP: 161/78,GCS: 15,SpO2: 96,Revised Trauma: 12, @00:39P: 80,R: 20,BP: 130/85,GCS: 15,SpO2: 95,Revised Trauma: 12, @23:32P: 71,R: 18,GCS: 15,SpO2: 96, @00:54P: 81,R: 20,BP: 151/64,GCS: 15,SpO2: 96,Revised Trauma: 12, @23:45P: 65,R: 18,BP: 131/77,GCS: 15,Glucose: 143,SpO2: 97,Revised Trauma: 12, Assessments @23:29MENTAL:Person Oriented,Time Oriented,Place Oriented,Event Oriented,SKIN:HEENT:LUNG SOUNDS:ABDOMEN:PELVIS//GI:EXTREMITIES:Left Arm: No Abnormalities,Right Arm: No Abnormalities,Left Leg: No Abnormalities,Right Leg: No Abnormalities,PULSE:Radial: 2+ Normal,NEURO: Impression Cardiac arrhythmia/dysrhythmia Procedures @23:29ALS AssessmentResponse: UnchangedSucceeded@23:45Saline Lock 10cc (22 ga) Site: Other Peripheral (Not Listed)Response: UnchangedSucceeded@23:40StretcherResponse: Unchanged@23:313-Lead ECGResponse: UnchangedSucceeded@23:3212-Lead ECG Timeline PAPER STRIPPER,BP: 186/100 M,PULSE: 63,RR: 18 R,SPO2: 92 Ox,ETCO2: ,BG: ,PAIN: ,GCS: 15, 23:16,Call Received 23:18,Dispatched 23:22,En Route 23:28,On Scene 23:29,At Patient [address] [place] [address] EMS Patient Care Report Name: JOHANNY GO Room #: 213-P ADM IN M.R.#: [id number] Admission: 12/28/19 Attend Phys: Jimmy Stearns MD Discharge: Date of : 37 Report #: [id number] 23:29,ALS Assessment,Response: UnchangedSucceeded, 23:30,BP: 161/78 M,PULSE: 66,RR: 18 R,SPO2: 96 Ox,ETCO2: ,BG: ,PAIN: ,GCS: 15, 23:31,3-Lead ECG,Response: UnchangedSucceeded, 23:32,12-Lead ECG, 23:32,BP: / M,PULSE: 71,RR: 18 R,SPO2: 96 Ox,ETCO2: ,BG: ,PAIN: ,GCS: 15, 23:40,Stretcher,Response: Unchanged 23:45,Saline Lock 10cc 22 ga Site: Other Peripheral (Not Listed),Response: UnchangedSucceeded, 23:45,BP: 131/77 M,PULSE: 65,RR: 18 R,SPO2: 97 Ox,ETCO2: ,B,PAIN: ,GCS: 15, 23:48,Depart Scene 00:39,BP: 130/85 M,PULSE: 80,RR: 20 R,SPO2: 95 Ox,ETCO2: ,BG: ,PAIN: ,GCS: 15, 00:54,BP: 151/64 M,PULSE: 81,RR: 20 R,SPO2: 96 Ox,ETCO2: ,BG: ,PAIN: ,GCS: 15, 00:56,At Destination 01:05,Transfer Patient 01:13,Call Closed 02:30,In District Disclaimer v1.1 Copyright 2020 [employer] This EMS Care Summary contains data elements from the applicable legal record (which may be displayed differently). It is designed to provide pertinent information for the following purposes: continuity of care, clinical quality, and state data reporting. The complete legal record is available to ED staff and administrators of the receiving hospital in [employer]'s Patient Tracker. All data is provided "as is."
[~2019-12-28 01:03] MED LIST changes: -COUMADIN 5 MG TA5 M1 PO; +WARFARIN SODIU2.5 MG PO; +WARFARIN SODIUM5 MG PO
--- NOTE | 2019-12-28 02:00 | NUR ---
Talked with [employer] answering service, licensing representative will call back
[2019-12-28 02:35] LABS: HEMATOCRIT 44.3 % (42.0-52.0); HEMOGLOBIN 14.7 gm/dL (14.0-18.0); MCH 30.6 pg (26.0-34.0); MCHC 33.2 g/dL (28.0-37.0); MCV 92.3 fL (80.0-100.0); PLATELET COUNT 141 thou/uL (150-400); WBC 4.8 thou/uL (4.0-11.0)
[2019-12-28 02:35] LABS: CALCIUM 9.2 mg/dL (8.5-10.1)
[2019-12-28 02:45] LABS: ALBUMIN 4.2 g/dL (3.4-5.0); MAGNESIUM 1.8 mg/dL (1.8-2.4); TOTAL BILIRUBIN 0.4 mg/dL (0.2-1.0); TOTAL PROTEIN 7.3 g/dL (6.4-8.2)
[2019-12-28 02:51] LABS: TROPONIN-I 1.34 ng/mL (<0.06)
--- NOTE | 2019-12-28 02:57 | NUR ---
Contacted Jaye @ [phone] to let her know pt will be admitted
[2019-12-28 03:42] LABS: ABSOLUTE NEUTROPHILS 3.3 thou/uL (1.4-8.2)
[2019-12-28 03:43] LABS: PLATELET ESTIMATE DECREASED
--- NOTE | 2019-12-28 04:51 | NUR ---
PATIENT IS A NEW ADMISSION TO THE UNIT THIS SHIFT. HE ARRIVED VIA WHEELCHAIR FROM THE ER AND WAS ABLE TO AMBULATE TO THE BED WITHOUT INCIDENT. PATIENT IS ALERT AND ORIENTED AND ABLE FULLY PARTICIPATE IN ADMISSION. NO COMPLAINTS OF CHEST PAIN. NURSE TO FULLY COMPLETE ADMISSION AND INITIATE PLAN OF CARE.
[2019-12-28 05:54] LABS: INR 2.2; PROTIME 22.9 Seconds (9.3-11.4)
--- NOTE | 2019-12-28 07:51 | EKG ---
[facility] [place] [address] ELECTROCARDIOGRAM REPORT Name: JOHANNY GO Room #: 213-P ADM IN M.R.#: [id number] Admission: 12/28/19 Attend Phys: Jimmy Stearns MD Discharge: Date of : 39 Report #: [id number] THIS REPORT FOR: cc: Michael Oreilly MD,Michael Hughes,Chalo Delvalle MD [facility] ~ THIS REPORT FOR: //name// [facility] ED Test Date: 2019-12-28 Test Time: 01:41:04 Pat Name: JOHANNY GO Department: Room: [facility] Gender: M [employer] Chief: [id number] : 1935 Requested By: Tiago Alexis Order Number: [id number] MD: Chalo Hughes Measurements Intervals Mitchell Rate: 60 P: [place]: 184 QRS: -65 QRSD: 101 T: 36 QT: 394 QTc: 394 Interpretive Statements Atrial-paced rhythm Left anterior fascicular block Poor R wave progression Compared to ECG 04/13/2018 08:25:39 No significant changes found Electronically Signed On 12-28-2019 7:51:50 CDT by Chalo Hughes [email or web address] <ELECTRONICALLY SIGNED> By: Chalo Hughes MD, FAC 12/28/19 0751 0 0 Chalo Hughes MD, [facility] /EPI
[2019-12-28 08:21] LABS: INR 2.3; PROTIME 24.1 Seconds (9.3-11.4)
[2019-12-28] MEDS ORDERED: MINOCYCLINE 5050 M1 PO (13:30)
[2019-12-28 14:03] LABS: PROTIME 20.6 Seconds (9.3-11.4)
[2019-12-28] MEDS ORDERED: FLOMAX0.4 MG PO (16:59)
--- NOTE | 2019-12-28 18:35 | NUR ---
ASSUMED CARE PT SHIFT CHANGE. ASSESSMENTS CHARTED. PT ALERT AND ORIENTED. VSS. C/O BACK PAIN- DENIES NEED FOR PAIN MED. O2 SATS WNL ON ROOM AIR. PACEMAKER LEAD REVISION DONE TODAY- LEFT CHEST INCISION REMAINS DRY AND INTACT. IMMOBILIZER IN PLACE. APPETITE ADEQUATE. PT CURRENTLY RESTING IN BED DENYING OF NEEDS. HOPEFUL FOR DC IN AM. WILL CONT TO MONITOR AND FOLLOW POC. WILL PASS ON REPORT TO MICAH MENDES.
[2019-12-29] VITALS (8 sets, daily range): BP systolic 117–141; BP diastolic 56–83
--- NOTE | 2019-12-29 19:46 | NUR ---
PT CARE ASSUMED AT 0700. ASSESSMENTS CHARTED. MEDICATION CHARTED. CXR [address] ABD.CANCELLED. LW IV D/C'D; RFA IV. UP AD MC. LT CHEST ICD; DERMABOND; ATRIAL PACED. BINDER; 2ND DAY.
--- NOTE | 2019-12-30 02:15 | NUR ---
ASSESSMENT: PT REMAIN ALERT AND ORIENT TIMES FOUR. DENIES CP. LEFT CHEST DEFIBRILLATOR SITE, WELL APPROXIMATED WITH DERMABOND, MILD REDNESS NOTED. PT IS POSSIBLE DC TO HOME IN THE AM. VSS. A-PACED WITH 1ST DEGREE PER MONITOR. UP TO BR WITH STEADY GAIT. GOOD PROGRESS TOWARDS DC GOAL, WILL CONTINUE TO MONITOR.
[2019-12-30 03:00] LABS: INR 1.2; PROTIME 12.3 Seconds (9.3-11.4)
[2019-12-30 04:45] VITALS: BP 118/78
[2019-12-30 07:54] VITALS: BP 115/74
[2019-12-30 08:15] VITALS: BP 115/74
[2019-12-30 09:19] VITALS: BP 115/74
--- NOTE | 2020-01-04 13:49 | P ---
[facility] [place] [address] PROCEDURE REPORT Name: JOHANNY GO Room #: 213-P [facility] IN M.R.#: [id number] Admission: 12/28/19 Attend Phys: Jimmy Stearns MD Discharge: 12/30/19 Date of : 37 Report #: [id number] THIS REPORT FOR: cc: Michael Oreilly MD,Hank Dhaliwal MD, MD ~ CC: Michael Stearns DATE OF SERVICE: 12/28/2019 PREOPERATIVE DIAGNOSIS: Inappropriate implantable cardioverter defibrillator shocks for lead fracture. POSTOPERATIVE DIAGNOSIS: Inappropriate implantable cardioverter defibrillator shocks for lead fracture. HISTORY OF PRESENT ILLNESS: The patient is an 84-year-old male with history of cardiomyopathy, status post ICD implantation, who last night started having multiple ICD shocks. He came to the Emergency Room and was found to have lead noise that resulted in inappropriate shocks. He is here for implantation of a new ICD lead. ANESTHESIA: The patient underwent MAC anesthesia with no anesthesia related complications. DESCRIPTION OF PROCEDURE: The patient underwent informed consent. We discussed the details of the procedure including the risks, which include but not limited to bleeding, infection, vascular damage, cardiac perforation, pneumothorax. He understood these risks and is willing to proceed. The patient was brought to EP laboratory in a fasting unsedated state, prepped and draped in a sterile fashion. He underwent a venogram showing patency of the left axillary vein with possibly some collaterals noted. Next, lidocaine was injected at the prior incision site. Incision was made and the pocket was entered. The device was removed from the pocket. I did dissect out the leads to allow me to gain access. I then obtained access x 1 to the left axillary vein. The wire would go approximately a third of the way down the subclavian, but then it stopped. I therefore could not advance the guidewire into the heart. I therefore placed a dilator into the subclavian vessel just proximal to the occlusion. I attempted to cross the occlusion with a Wholey wire, but this was unsuccessful and it would travel up a collateral branch. I therefore exchanged for a Glidewire and after several minutes, I was able to advance via this narrowing. I was then able to advance my dilator through this narrowing and then I exchanged the dilator and placed the sheath into the vessel. I then advanced the lead into the right atrium. I then was able to position the lead [address] [address] PROCEDURE REPORT Name: JOHANNY GO Room #: 213-P DIS IN M.R.#: [id number] Admission: 12/28/19 Attend Phys: Jimmy Stearns MD Discharge: 12/30/19 Date of : 39 Report #: [id number] into the right ventricular apex far away from the prior lead with no evidence of any interactions. The lead was sutured to the prepectoral fascia and this was a single coil lead. I therefore connected the pace sense and coil from this new lead to the old devices as there was plenty of battery life. I capped the old pace sense and RV coil, but I utilized the old SVC coil from the old lead as the impedances on this were within normal limits. This was done to maintain a dual coil ICD function. The leads and device were placed in the pocket. The pocket was irrigated with vancomycin and then the pocket was closed in 2 layers using 2-0 for the deep layer, 3-0 for the middle layer and surgical glue was placed to outer skin layer. The patient awoke neurologically and hemodynamically intact. No complications and no significant bleeding. The implanted device was a [employer], model #QSIR6M2, serial #[id number]. This device was originally implanted on 01/25/2018. The atrial lead was of 4574, serial #[id number]. The old RV lead that was capped was a 6947, serial #[id number], originally implanted on 06/30/2010. The newly implanted lead was a 6935, serial #[id number]. The atrial lead demonstrated P-wave was 2.8 millivolts, pacing impedance 475 ohms, pacing threshold 0.5 volts at 0.4 milliseconds. The new lead demonstrated R-wave of 7.6 millivolts, pacing impedance 608 ohms, high voltage impedance of 49 and 52 respectively with a threshold of 0.5 volts at 0.4 milliseconds. The device was placed back to its nominal settings. CONCLUSIONS: 1. Successful RV lead revision. 2. Satisfactory atrial and right ventricular pacing and sensing thresholds. 3. Implantation of a new single coil implantable cardioverter defibrillator lead, but the SVC coil from the old lead was connected to the new device to maintain dual coil implantable cardioverter defibrillator function. <ELECTRONICALLY SIGNED> By: Hank Marie MD 01/04/20 1349 1234 1317 Hank Marie MD /nt
== END 2019-12-30 11:22 | disposition home or self-care (01) | DRG 227 ==
LOC: ER 01:03 → 2N 03:06 → EROBS 03:06 → 2N 03:10
PROVIDERS: Emergency Medicine; Hospitalist; Nurse Practitioner Adult Health; Nurse Practitioner Family; ADMIT Internal Medicine; ATTEND Internal Medicine
PROC: 02HK3KZ Insertion of Defibrillator Lead into Right Ventricle, Percutaneous Approach (ICD-10-PCS; principal; 2019-12-28)
PROC: 0JH608Z Insertion of Defibrillator Generator into Chest Subcutaneous Tissue and Fascia, Open Approach (ICD-10-PCS; principal; 2019-12-28)
PROC: 02H63KZ Insertion of Defibrillator Lead into Right Atrium, Percutaneous Approach (ICD-10-PCS; principal; 2019-12-28)
PROC: 5A09357 Assistance with Respiratory Ventilation, Less than 24 Consecutive Hours, Continuous Positive Airway Pressure (ICD-10-PCS; principal; 2019-12-28)
PROC: 02WA3MZ Revision of Cardiac Lead in Heart, Percutaneous Approach (ICD-10-PCS; 2019-12-28)
PROC: 5A09357 Assistance with Respiratory Ventilation, Less than 24 Consecutive Hours, Continuous Positive Airway Pressure (ICD-10-PCS; 2019-12-29)
PROC: 5A09357 Assistance with Respiratory Ventilation, Less than 24 Consecutive Hours, Continuous Positive Airway Pressure (ICD-10-PCS; 2019-12-30)
DX: T82.897A Other specified complication of cardiac prosthetic devices, implants and grafts, initial encounter (principal); I42.9 Cardiomyopathy, unspecified; I48.0 Paroxysmal atrial fibrillation; I49.5 Sick sinus syndrome; I25.10 Atherosclerotic heart disease of native coronary artery without angina pectoris; R77.8 Other specified abnormalities of plasma proteins; N40.0 Benign prostatic hyperplasia without lower urinary tract symptoms; I10 Essential (primary) hypertension; E11.51 Type 2 diabetes mellitus with diabetic peripheral angiopathy without gangrene; Z20.828 Contact with and (suspected) exposure to other viral communicable diseases; Y83.8 Other surgical procedures as the cause of abnormal reaction of the patient, or of later complication, without mention of misadventure at the time of the procedure; Y82.8 Other medical devices associated with adverse incidents; E78.5 Hyperlipidemia, unspecified; I25.2 Old myocardial infarction; Z95.5 Presence of coronary angioplasty implant and graft; Z79.899 Other long term (current) drug therapy; Z79.01 Long term (current) use of anticoagulants; Z79.82 Long term (current) use of aspirin; Z95.810 Presence of automatic (implantable) cardiac defibrillator; Y92.89 Other specified places as the place of occurrence of the external cause

== ENCOUNTER → 2020-01-02 | Outpatient (CLI) | payer OTHER, BC ==
[~2020-01-02] MED LIST changes: +MINOCYCLINE 5050 M1 PO
== END ==
LOC: SJCVC 11:23
PROVIDERS: ATTEND Internal Medicine Cardiovascular Disease
DX: Z45.02 Encounter for adjustment and management of automatic implantable cardiac defibrillator (principal); I47.2 Ventricular tachycardia; I25.10 Atherosclerotic heart disease of native coronary artery without angina pectoris; I25.5 Ischemic cardiomyopathy; I48.0 Paroxysmal atrial fibrillation; I10 Essential (primary) hypertension; E78.00 Pure hypercholesterolemia, unspecified; Z79.01 Long term (current) use of anticoagulants; I49.5 Sick sinus syndrome; E78.5 Hyperlipidemia, unspecified; Z95.810 Presence of automatic (implantable) cardiac defibrillator; Z79.82 Long term (current) use of aspirin; Z79.899 Other long term (current) drug therapy; Z95.5 Presence of coronary angioplasty implant and graft; Z82.49 Family history of ischemic heart disease and other diseases of the circulatory system; Z87.891 Personal history of nicotine dependence

== ENCOUNTER → 2020-04-02 | Outpatient (CLI) | payer OTHER, BC | LOC: SJCVC 13:31 | PROVIDERS: ATTEND Internal Medicine Cardiovascular Disease | DX: I48.0 Paroxysmal atrial fibrillation (principal); R94.31 Abnormal electrocardiogram [ECG] [EKG]; I47.2 Ventricular tachycardia; I25.5 Ischemic cardiomyopathy; Z95.810 Presence of automatic (implantable) cardiac defibrillator; Z79.82 Long term (current) use of aspirin; Z79.899 Other long term (current) drug therapy; Z87.891 Personal history of nicotine dependence ==

== ENCOUNTER → 2020-07-28 | Outpatient (CLI) | payer OTHER, BC | LOC: SJCVC 11:57 | PROVIDERS: ATTEND Internal Medicine Cardiovascular Disease | DX: I25.10 Atherosclerotic heart disease of native coronary artery without angina pectoris (principal); E78.00 Pure hypercholesterolemia, unspecified; I47.2 Ventricular tachycardia; I49.5 Sick sinus syndrome; I25.5 Ischemic cardiomyopathy; I73.9 Peripheral vascular disease, unspecified; I48.0 Paroxysmal atrial fibrillation; D68.59 Other primary thrombophilia; Z95.810 Presence of automatic (implantable) cardiac defibrillator; Z79.01 Long term (current) use of anticoagulants; Z79.82 Long term (current) use of aspirin; Z79.899 Other long term (current) drug therapy; Z87.891 Personal history of nicotine dependence; Z82.49 Family history of ischemic heart disease and other diseases of the circulatory system ==

== ENCOUNTER → 2020-12-11 | Outpatient (CLI) | payer OTHER, BC ==
[~2020-12-11] MED LIST changes: +EFFIENT10 MG PO
== END ==
LOC: SJCVC 14:45
PROVIDERS: ATTEND Internal Medicine Cardiovascular Disease
DX: R94.31 Abnormal electrocardiogram [ECG] [EKG] (principal); I44.7 Left bundle-branch block, unspecified; R07.9 Chest pain, unspecified; I25.10 Atherosclerotic heart disease of native coronary artery without angina pectoris; I49.5 Sick sinus syndrome; I47.2 Ventricular tachycardia; I48.0 Paroxysmal atrial fibrillation; I73.9 Peripheral vascular disease, unspecified; I10 Essential (primary) hypertension; D68.59 Other primary thrombophilia; F41.9 Anxiety disorder, unspecified; Z95.810 Presence of automatic (implantable) cardiac defibrillator; Z79.01 Long term (current) use of anticoagulants; Z79.82 Long term (current) use of aspirin; Z79.899 Other long term (current) drug therapy; Z87.891 Personal history of nicotine dependence

== ENCOUNTER 2020-12-16 07:45 | Observation (INO) | payer OTHER, BC ==
[2020-12-16] VITALS (9 sets, daily range): BP systolic 122–144; BP diastolic 59–70
[~2020-12-16] VITALS: Ht 182.9 cm; Wt 117.9 kg
[~2020-12-16 07:45] MED LIST changes: -EFFIENT10 MG PO
[2020-12-16 09:19] LABS: INR 1.32; PROTIME 14.2 Seconds (10.5-12.1)
[2020-12-16] MEDS ORDERED: EFFIENT10 MG PO (12:47)
--- NOTE | 2020-12-16 13:53 | NUR ---
REPORT GIVEN TO JOHANNY MENDES ON CCU, PT ADMITTED TO ROOM 208 FOR OBSERVATION POST STENT PLACEMENT. ACCOMPANYING PT TO ROOM.
--- NOTE | 2020-12-16 14:21 | NUR ---
PT ORIENTED TO ROOM AND UNIT, BED LOW AND LOCKED, SIDE RAILS UO X3, CALL LIGHT IN REACH. TELE APPLIED. RIGHT GROIN CDI WITH NO HEMATOMA. WILL CONTINUE TO ASSESS.
--- NOTE | 2020-12-16 17:05 | CATHLAB ---
[facility] [place] [address] INVASIVE PROCEDURE REPORT Name: JOHANNY GO Room #: 208-P ADM Zayra M.RAria#: [id number] Admission: 12/16/20 Attend Phys: Gary Mendez MD, Discharge: Date of : 37 Report #: [id number] THIS REPORT FOR: cc: Michael Oreilly MD, Gus MD Mancuso,Gary Ko MD [facility] ~ APPROVED REPORT Study performed: 12/16/2020 10:03:05 Patient Details Patient Status: Out-Patient Room #: The patient is a 85 year-old male Event Personnel Gary Mendez Financial Services Agent, Argelia Queen RTR Monitor, Sania Ybarra RN RN, Angeline Chatterjee RTR, MEDICAL IMAGING TECH Scrub Procedures Performed Art Access - R femoral artery* Left Heart Cath w/or w/o Coronaries [id number] [facility] Aortogram Abdominal Peripheral Angio 617588 [address] w/wo Plasty Single RCA 055489 Hemostasis w/ Mynx 37898 Initial Mod Sed Same Phys/QHP Gr5y 300400 38718 Mod Sed Same Phys/QHP Ea [id number] Procedure Narrative The Right Groin^ was infiltrated with 1% Lidocaine subcutaneous anesthesia. A PINNACLE 6FR Sheath #[id number] sheath was inserted into the RFA^. Coronary angiography was performed using coronary diagnostic catheters. The right coronary system was accessed and visualized with a JR4 catheter. The left coronary system was accessed and visualized with a JL6 catheter. The left ventricle was accessed and visualized with a STRAIGHT PIGTAIL catheter. Left ventriculogram was performed in 30 degree projection. An aortogram of the abdominal aorta was performed. Closure device was deployed with a Fr MYNXGRIP 6/7F #[id number]. The patient tolerated the procedure well and there were no complications associated with the procedure. There was no hematoma. Intraoperative Conscious Sedation Sedation start time: 11:18 Case end Time: 12:37 Fentanyl mcg Versed mg [facility] [address] [place] [address] INVASIVE PROCEDURE REPORT Name: JOHANNY GO Room #: 208-P [facility] IN M.R.#: [id number] Admission: 12/16/20 Attend Phys: Gary Mendez, Discharge: Date of : 37 Report #: [id number] Fluoro Time: 11.70 minutes Dose: DAP 46790.10 cGycm2 3574 mGy Contrast Type and Amount: Omnipaque 180 ml Hemodynamics The aortic pressure is 135/64 mmHg with a mean of 92 mmHg. The left ventricular pressure is 123/1 mmHg with a mean of mmHg. The left ventricular end diastolic pressure is 16 mmHg. PCI Technique Lesion Percutaneous coronary intervention was performed on the proximal right coronary artery. A LAUNCHER 6FR JR 4 #[id number] Guide Catheter was used to engage the ostium. A Luge Wire .014 x 182CM #[id number] Interventional Guidewire was used to cross the lesion. STENT DEPLOYMENT A drug-eluting stent RESOLUTE SERVANDO OTW 4.0 X 15 #[id number] was inserted and inflated up to 18.00atm for 33seconds. A drug-eluting stent RESOLUTE SERVANDO OTW 3.5 x 12mm was inserted and inflated up to 18atm for 20 seconds. Additional Inflation: 20atm for 23 seconds. POST STENT DEPLOYMENT BALLOON DILATION A Balloon catheter TREK NC OTW 4.0 X 12 #[id number] was inserted and inflated up to 18.00atm for 32seconds. Additional Inflation: 16.00atm for 31seconds. Additional Inflation: 20.00atm for 22seconds. Conclusion #1 Successful PTCA stent of the proximal dominant RCA with high-grade proximal lesion placement of a 4 oh by 15 and three 5 x 12 resolute stents postdilated to 4.1 mm and NILSON grade III flow no dissection or thrombus formation. 6 #2 left main with mild distal tapered narrowing of 20 to 30% giving rise to LAD and circumflex. #3 the LAD is moderately diseased attenuated distally. Proximal mid stent is widely patent previously placed. #4 circumflex OM nondominant with mild disease #5 normal left jugular size systolic function normal EF 55%. 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 No flow-limiting disease. Recommendations and plan: Continue aggressive risk factor modification. Dual antiplatelet therapy initiated. Patient [facility] [address] [place] [address] INVASIVE PROCEDURE REPORT Name: JOHANNY GO Room #: 208-P [facility] IN M.R.#: [id number] Admission: 12/16/20 Attend Phys: Gary Mendez, Discharge: Date of : 37 Report #: [id number] transferred to [facility] in stable condition resolution of chest pain and EKG changes. Follow post coronary stent protocol. <ELECTRONICALLY SIGNED> By: Gary Mendez MD, FACC 12/16/201703 03 03 Gary Mendez MD, FACC /INF
--- NOTE | 2020-12-17 02:50 | NUR ---
PT IS ALERT AND ORIENTED X4. LUNGS ARE CLEAR ON ROOM AIR. STANDS UP TO VOID PER URINAL. MINX DRESING TO RIGHT GROIN CLEAN DRY AND INTACT NOTED. NO COMPLAINTS OF PAIN NOED. ONGOING NURISNG CARE AT THIS TIME. CALL LIGHT WITHIN REACH IF NEEDS ASSTIACNE PER STAFF
[2020-12-17 05:21] LABS: HEMATOCRIT 42.7 % (42.0-52.0); HEMOGLOBIN 14.2 gm/dL (14.0-18.0); MCH 30.3 pg (26.0-34.0); MCHC 33.2 g/dL (28.0-37.0); MCV 91.2 fL (80.0-100.0); RBC 4.68 mil/uL (4.50-6.00); RDW 13.8 % (10.5-14.5); WBC 4.8 thou/uL (4.0-11.0)
[2020-12-17 06:27] LABS: ALBUMIN 3.7 g/dL (3.4-5.0); CREATININE 1.2 mg/dL (0.7-1.3); POTASSIUM 4.4 mmol/L (3.5-5.1); TOTAL BILIRUBIN 0.6 mg/dL (0.2-1.0); TOTAL PROTEIN 6.8 g/dL (6.4-8.2)
[2020-12-17 08:07] VITALS: BP 135/74
[2020-12-17] MEDS ORDERED: ASPIRIN EC81 M1 PO (08:19)
[2020-12-17 12:02] VITALS: BP 126/69
--- NOTE | 2020-12-17 12:08 | NUR ---
PT IS A&OX4. PT IS ROOM AIR AND A PACED ON THE MONITOR. LUNG SOUNDS CLEAR TO AUSCULTATION. GROIN SITE IS CLEAN, DRY, AND INTACT. PT IS UP AD MC. NO COMPLAINTS OF PAIN OR DISCOMFORT AT THIS TIME.
[2020-12-17 12:52] VITALS: BP 126/69
--- NOTE | 2020-12-17 13:15 | NUR ---
PT DISCHARGED AND TAKEN VIA WHEELCHAIR TO EXIT. DRIVING PRIVATE VEHICLE. REVIEWED DISCHARGE INSTRUCTIONS AND FOLLOW UP WITH PT. PT AND VERBALIZED UNDERSTANDING. IV DISCONTINUED.
== END 2020-12-17 13:49 | disposition home or self-care (01) ==
LOC: CATH 07:45 → 2N 14:15
PROVIDERS: Nurse Practitioner Adult Health; ADMIT Internal Medicine Cardiovascular Disease; ATTEND Internal Medicine Cardiovascular Disease
DX: I25.10 Atherosclerotic heart disease of native coronary artery without angina pectoris (principal); Z20.822 Contact with and (suspected) exposure to COVID-19; I10 Essential (primary) hypertension; E78.5 Hyperlipidemia, unspecified; E11.9 Type 2 diabetes mellitus without complications; I42.9 Cardiomyopathy, unspecified; I48.0 Paroxysmal atrial fibrillation; Z79.01 Long term (current) use of anticoagulants; Z79.899 Other long term (current) drug therapy; Z79.82 Long term (current) use of aspirin; Z90.49 Acquired absence of other specified parts of digestive tract; Z95.0 Presence of cardiac pacemaker

== ENCOUNTER → 2021-01-29 | Outpatient (CLI) | payer OTHER, BC ==
[~2021-01-29] MED LIST changes: +EFFIENT10 MG PO
== END ==
LOC: SJCVC 09:43
PROVIDERS: ATTEND Internal Medicine Cardiovascular Disease
DX: I25.10 Atherosclerotic heart disease of native coronary artery without angina pectoris (principal); I47.2 Ventricular tachycardia; I49.5 Sick sinus syndrome; I73.9 Peripheral vascular disease, unspecified; I25.5 Ischemic cardiomyopathy; I48.0 Paroxysmal atrial fibrillation; E78.00 Pure hypercholesterolemia, unspecified; Z95.0 Presence of cardiac pacemaker; D68.59 Other primary thrombophilia; I10 Essential (primary) hypertension; F41.9 Anxiety disorder, unspecified; Z82.49 Family history of ischemic heart disease and other diseases of the circulatory system; Z79.01 Long term (current) use of anticoagulants; Z79.82 Long term (current) use of aspirin; Z79.899 Other long term (current) drug therapy; Z87.891 Personal history of nicotine dependence

== ENCOUNTER → 2021-05-06 | Outpatient (CLI) | payer OTHER, BC | LOC: SJCVC 09:49 | PROVIDERS: ATTEND Internal Medicine Cardiovascular Disease | DX: I25.10 Atherosclerotic heart disease of native coronary artery without angina pectoris (principal); E78.00 Pure hypercholesterolemia, unspecified; I10 Essential (primary) hypertension; I25.5 Ischemic cardiomyopathy; I48.0 Paroxysmal atrial fibrillation; F17.210 Nicotine dependence, cigarettes, uncomplicated; Z79.01 Long term (current) use of anticoagulants; Z95.810 Presence of automatic (implantable) cardiac defibrillator; Z82.49 Family history of ischemic heart disease and other diseases of the circulatory system; Z79.82 Long term (current) use of aspirin; Z79.899 Other long term (current) drug therapy ==